=== PATIENT | male | born 1995 | race Caucasian/White ===

== ENCOUNTER 2025-05-11 12:57 | Emergency (ER) | payer BC ==
[2025-05-11] MEDS ORDERED: Ketorolac Tromethamine 30 MG (1 mL) VIAL ONE (13:17)
[2025-05-11 14:01] LABS: Bacteria/HPF None Seen HPF (None Seen); CAUTI Indications for Culture Pelvic or flank pain; Glucose, Urine (Dipstick) Normal (Negative); Leukocyte Negative Leu/uL (Negative); Protein, Urine (Dipstick) Negative (Neg-Trace); RBC/HPF 0-3 HPF (0-3); Specific Gravity, Urine 1.033 (1.002-1.036); WBC/HPF 0-3 HPF (0-3)
[2025-05-11 14:08] LABS: Urine Culture Reflex No No
[2025-05-11] MEDS ORDERED: Lidocaine 1% PF 5 ML VIAL ONE (14:38)
[2025-05-11] MEDS ORDERED: cefTRIAXone (ROCEPHIN) 1 GM VIAL ONE (14:38)
== END 2025-05-11 14:44 | disposition home or self-care (01) ==
LOC: ERS 12:57
DX: N43.3 Hydrocele, unspecified (principal)
CPT/HCPCS: 76870; 81001; 87086; 93976; 96372; J0696; J1885